=== PATIENT | female | born 1990 | race Caucasian/White ===

== ENCOUNTER 2017-11-13 14:38 | Emergency (ER) | payer OTHER ==
[~2017-11-13] VITALS: Ht 170.2 cm; Wt 113.4 kg
[~2017-11-13 14:38] MED LIST: APAP500 PO; BACTRIM DS TAB1 EACH PO; DOXYCYCLINE 10100 MG PO; NORCO 5-325 TA1 EACH PO; PENICILLIN V P500 MG PO
[2017-11-13] MEDS ORDERED: IMITREX 25 MG T25 MG PO (14:56)
[2017-11-13 15:33] LABS: HEMATOCRIT 41.1 % (37.0-47.0); HEMOGLOBIN 13.5 gm/dL (12.0-15.0); MCH 28.9 pg (26.0-34.0); MCV 87.7 fL (80.0-100.0); RBC 4.68 mil/uL (4.20-5.00); RDW-CV 14.5 % (10.5-14.5); WBC 7.1 thou/uL (4.0-11.0)
[2017-11-13 15:46] LABS: CALCIUM 8.9 mg/dL (8.5-10.1); CREATININE 0.8 mg/dL (0.6-1.3); POTASSIUM 4.2 mmol/L (3.5-5.1)
[2017-11-13 15:51] LABS: ALBUMIN 3.6 g/dL (3.4-5.0); TOTAL BILIRUBIN 0.3 mg/dL (<0.1-1.0); TOTAL PROTEIN 7.4 g/dL (6.4-8.2)
[2017-11-13] MEDS ORDERED: FLAGYL500 MG PO (16:44)
[2017-11-13] MEDS ORDERED: CITRATE OF MAG296 M1 PO (16:44)
[2017-11-13 17:17] VITALS: BP 100/52
== END 2017-11-13 17:18 | disposition home or self-care (01) ==
LOC: M.ERS 14:38
PROVIDERS: Emergency Medicine Emergency Medical Services
DX: R51 Headache (principal); K59.00 Constipation, unspecified; A59.9 Trichomoniasis, unspecified; A69.20 Lyme disease, unspecified; Z98.890 Other specified postprocedural states